=== PATIENT | female | born 1965 | race Caucasian/White ===

== ENCOUNTER 2017-05-20 08:05 | Day surgery (SDC) | payer OTHER ==
[~2017-05-20] VITALS: Ht 149.9 cm; Wt 57.5 kg
[~2017-05-20 08:05] MED LIST: Calcium Magnes1 EAC1 PO; LEVSOD75 PO; NAPR220 PO; POTASSIUM99 MG; VITAMIN D-32000 UNIT PO
== END 2017-05-20 09:50 | disposition home or self-care (01) ==
LOC: ORSCSDS 08:05
PROVIDERS: Surgery
PROC: 0DJD8ZZ Inspection of Lower Intestinal Tract, Via Natural or Artificial Opening Endoscopic (ICD-10-PCS; principal; 2017-05-20 09:15)
DX: Z12.11 Encounter for screening for malignant neoplasm of colon (principal); E03.9 Hypothyroidism, unspecified; J45.909 Unspecified asthma, uncomplicated; Z87.891 Personal history of nicotine dependence; Z79.899 Other long term (current) drug therapy
CPT/HCPCS: J7120

== ENCOUNTER 2021-04-10 11:51 | Day surgery (SDC) | payer BC, OTHER ==
[~2021-04-10] VITALS: Ht 152.4 cm; Wt 55.9 kg
--- NOTE | 2021-04-10 13:49 | NUR ---
04/10/21 1349 Christina Macario 0.15CC OF EPI MIXED IN 30CC OF 0.75% MARCAINE FOR 1:200,000. 10 CC INJECTED BY
--- NOTE | 2021-04-10 14:20 | NUR ---
04/10/21 1420 Esther Dhillon PT. DENIES ANY PAIN OR NAUSEA. PT. VERBALIES TOES ARE NUMB TO THE TOUCH. GOOD CAP REFILL TO TOES.
--- NOTE | 2021-04-10 14:43 | NUR ---
04/10/21 1443 AlejoEsther Quiros CONTINUES TO DENIES PAIN OR NAUSEA. PT. EATING SNACK & DRINKING APPLE JUICE. AT HER SIDE. GOOD CAP REFILL TO RIGHT TOES.
== END 2021-04-10 15:15 | disposition home or self-care (01) ==
LOC: ORSCSDS 11:51
PROVIDERS: Podiatrist Foot & Ankle Surgery
PROC: 0QSQ04Z Reposition Right Toe Phalanx with Internal Fixation Device, Open Approach (ICD-10-PCS; principal; 2021-04-10 13:15)
PROC: 0QSN04Z Reposition Right Metatarsal with Internal Fixation Device, Open Approach (ICD-10-PCS; principal; 2021-04-10 13:15)
DX: M20.11 Hallux valgus (acquired), right foot (principal); M20.41 Other hammer toe(s) (acquired), right foot; E03.9 Hypothyroidism, unspecified; J45.909 Unspecified asthma, uncomplicated; Z87.891 Personal history of nicotine dependence; Z79.899 Other long term (current) drug therapy
CPT/HCPCS: C1713; C1769; J0171; J1100; J2250; J2405; J2704; J3010

== ENCOUNTER → 2024-05-29 | Outpatient (CLI) | payer BC, OTHER ==
[2024-05-29 18:52] LABS: BASOPHILS PERCENT AUTO 2 % (0-2); EOSINOPHILS ABSOLUTE AUTO 0.51 K/mm3 (0.00-0.68); EOSINOPHILS PERCENT AUTO 8 % (0-6); Hematocrit 37.9 % (33.0-51.0); Hemoglobin 12.9 g/dL (11.5-16.0); IMMATURE GRAN ABSOLUTE AUTO 0.01 K/mm3 (0.00-0.10); IMMATURE GRAN PERCENT AUTO 0 % (0-1); LYMPHOCYTES ABSOLUTE AUTO 2.62 K/mm3 (0.84-5.20); LYMPHOCYTES PERCENT AUTO 38 % (21-46); MONOCYTES ABSOLUTE AUTO 0.57 K/mm3 (0.16-1.47); MONOCYTES PERCENT AUTO 8 % (4-13); Mean Corpuscular HGB 30.1 pg (26.0-34.0); Mean Corpuscular Volume 88 fL (80-100); Mean Platelet Volume 10.1 fL (9.1-12.4); NEUTROPHILS ABSOLUTE AUTO 3.02 K/mm3 (1.96-9.15); NEUTROPHILS PERCENT AUTO 44 % (41-73); Platelet Count 391 K/mm3 (150-400); RDW Standard Deviation 42.5 fL (35.1-46.3); Red Blood Cell Count 4.29 M/mm3 (3.80-5.20); White Blood Cell Count 6.83 K/mm3 (4.00-11.30)
[2024-05-29 19:39] LABS: Albumin/Globulin Ratio 1.1 (0.8-1.8); Bilirubin, Total 0.5 mg/dL (0.1-1.0); Bun/Creatinine Ratio 16.2 (12.0-20.0); Calcium, Blood 9.7 mg/dL (8.5-10.1); Creatinine, Blood 0.8 mg/dL (0.40-1.00); Free Thyroxine 1.06 ng/dL (0.70-1.60); Globulin, Blood 3.8 g/dL (2.2-4.0); Potassium, Blood 3.9 mmol/L (3.5-5.5); Total Protein, Blood 7.8 g/dL (6.4-8.2)
== END | disposition home or self-care (01) ==
LOC: LAB SHORT 17:21 → LAB 17:21
PROVIDERS: Family Medicine
DX: E03.8 Other specified hypothyroidism (principal); R10.84 Generalized abdominal pain
CPT/HCPCS: 80053; 82150; 83690; 84439; 84443; 85025